=== PATIENT | male | born 1960 | race Caucasian/White ===

== ENCOUNTER 2019-10-14 17:19 | Outpatient (CLI) | payer SELFPAY ==
[2019-10-14 17:48] LABS: Alanine Aminotransferase 16 U/L (4-50); Albumin Level 4.5 g/dL (3.5-5.1); Alkaline Phosphatase 64 U/L (38-126); Anion Gap 7 mmol/L (8-16); Aspartate Amino Transferase 30 U/L (17-59); Bilirubin,Total 1.9 mg/dL (0.2-1.3); Blood Urea Nitrogen 16 mg/dL (9-20); Carbon Dioxide 24 mmol/L (22-30); Chloride 109 mmol/L (98-107); Estimated Glomerular Filt Rate > 60; Glucose 79 mg/dL (75-110); Sodium 140 mmol/L (137-145)
== END 2019-10-14 17:20 | disposition home or self-care (01) ==
PROVIDERS: Visit Provider Internal Medicine Cardiovascular Disease
DX: I25.10 Atherosclerotic heart disease of native coronary artery without angina pectoris (principal)
CPT/HCPCS: 36415; 80053

== ENCOUNTER 2020-05-28 15:48 | Emergency (ER) | payer SELFPAY ==
[2020-05-28 15:50] VITALS: BP 151/70; PULSE 100; RESP 18; TEMP 36.5; O2SAT 96
[2020-05-28 15:55] VITALS: BP 151/70; PULSE 100; RESP 18; TEMP 36.5; O2SAT 96
--- NOTE | 2020-05-28 16:22 | ED.GENADULT ---
HPI - General Adult General Chief complaint: Unspecified Stated complaint: sore on tongue Time Seen by Provider: 05/28/20 15:56 Source: patient and family Mode of arrival: ambulatory Limitations: no limitations History of Present Illness HPI narrative: 60-year-old with a history of CAD on Plavix here with complaints of bleeding from the tongue yesterday. Patient states that he accidentally took 2 tablets of Plavix yesterday. He presently has no bleeding. He denies any trauma Onset (ago): day(s) (1) Location: mouth Related Data Home Medications Medication Instructions Recorded Confirmed aspirin 81 mg PO DAILY 05/28/20 05/28/20 clopidogrel 75 mg PO DAILY 05/28/20 05/28/20 ezetimibe 10 mg PO DAILY 05/28/20 05/28/20 fenofibrate nanocrystallized 145 mg PO DAILY 05/28/20 05/28/20 lisinopril 10 mg PO DAILY 05/28/20 05/28/20 metoprolol tartrate 25 mg PO BID 05/28/20 05/28/20 Allergies Allergy/AdvReac Type Severity Reaction Status Date / Time Penicillins Allergy Unknown Verified 05/28/20 15:52 Review of Systems Review of Systems: All systems reviewed & are unremarkable except as noted in HPI and below Constitutional: Constitutional: Reports no additional constitutional complaints Eyes: Eyes: Reports no additional eye complaints ENT: Reports system reviewed and no additional complaints, except as documented and Reports as per HPI Cardiovascular: Cardiovascular: Reports no additional cardiovascular complaints Gastrointestinal: Gastrointestinal: Reports no additional gastrointestinal complaints Allergic/Immunologic: Allergic/Immunologic: Reports no additional allergic/immunologic complaints Exam Narrative: Exam Narrative: GENERAL: Well-appearing, well-nourished, and in no acute distress. HEAD: Normocephalic, atraumatic. EYES: PERRLA and EOMI. ENT: Nares clear, no rhinorrhea or epistaxis. Mucous membranes moist. a small vascular area on the tongue , no active bleeding NECK: Supple. CHEST: Clear to auscultation. No respiratory distress. HEART: Regular rate and rhythm. No murmur heard. Normal peripheral pulse EXTREMITIES: Normal range of motion. No edema. SKIN: Warm, dry, no rash. NEURO: No focal deficits. Alert and oriented x3. PSYCH: Normal mood and affect. Course Course Emergency Course: No active bleeding at this time , i advised him to follow with ENT if problem reoccur . Vital Signs Vital signs: Vital Signs Temperature 36.5 C 05/28/20 15:50 Pulse Rate 100 05/28/20 15:50 Respiratory Rate 18 05/28/20 15:50 Blood Pressure 151/70 H 05/28/20 15:50 Pulse Oximetry 96 05/28/20 15:50 Temperature 36.5 C 05/28/20 15:55 Pulse Rate 100 05/28/20 15:55 Respiratory Rate 18 05/28/20 15:55 Blood Pressure 151/70 H 05/28/20 15:55 Pulse Oximetry 96 05/28/20 15:55 Medical Decision Making Vital Signs Vital Signs: Vital Signs Temperature 36.5 C 05/28/20 15:50 Pulse Rate 100 05/28/20 15:50 Respiratory Rate 18 05/28/20 15:50 Blood Pressure 151/70 H 05/28/20 15:50 Pulse Oximetry 96 05/28/20 15:50 Temperature 36.5 C 05/28/20 15:55 Pulse Rate 100 05/28/20 15:55 Respiratory Rate 18 05/28/20 15:55 Blood Pressure 151/70 H 05/28/20 15:55 Pulse Oximetry 96 05/28/20 15:55 Discharge Plan Discharge Clinical Impression: History of hemorrhage of tongue Patient Disposition: Home, Self-Care Condition: Stable Instructions: Antibiotic Form, Bleeding Disorders (ED) Additional Instructions: follow with ENT , ice , Prescriptions: No Action clopidogrel 75 mg tablet 75 mg PO DAILY RF: 0 lisinopril 10 mg tablet 10 mg PO DAILY RF: 0 ezetimibe 10 mg tablet 10 mg PO DAILY RF: 0 metoprolol tartrate 25 mg tablet 25 mg PO BID RF: 0 fenofibrate nanocrystallized 145 mg tablet 145 mg PO DAILY RF: 0 aspirin 81 mg Tablet 81 mg PO DAILY RF: 0 Follow-up/Referrals: Rosendo Madrid MD [Physician] - PHYSICIAN,[employer] [Suzy
== END 2020-05-28 16:42 | disposition home or self-care (01) ==
LOC: ANHED 16:35
PROVIDERS: Emergency Provider Family Medicine
DX: K13.79 Other lesions of oral mucosa (principal); Z79.02 Long term (current) use of antithrombotics/antiplatelets; Z79.82 Long term (current) use of aspirin
CPT/HCPCS: 99281